=== PATIENT | female | born 1965 | race Asian ===

== ENCOUNTER 2016-09-17 13:26 | Inpatient (IN) | payer BC ==
[~2016-09-17] VITALS: Ht 157.5 cm; Wt 59.0 kg
[2016-09-17 14:39] LABS: microscopic required? NO
[2016-09-17 14:52] LABS: UA SPECIFIC GRAVITY <=1.005 (1.005-1.035); urine erythrocyte NEGATIVE (NEGATIVE)
[2016-09-17 20:00] VITALS: BP 106/63
[2016-09-17 20:05] VITALS: Ht 157.5 cm; Wt 59.0 kg
[2016-09-17 22:30] VITALS: BP 108/63
[2016-09-18 05:51] VITALS: BP 105/67
[2016-09-18 05:51] LABS: PLATELET COUNT 147 x10^3mcL (130-400); RED CELL DISTRIBUTION WIDTH 13.7 % (11.5-14.5)
[2016-09-18 06:14] LABS: CALCIUM 8.2 mg/dL (8.5-10.1); CARBON DIOXIDE 27.4 mmol/L (21-32); CHLORIDE SERUM 106 mmol/L (98-107); CREATININE SERUM 0.6 mg/dL (0.6-1.0); GFR1 > 60 mL/min; GLUCOSE SERUM 113 mg/dL (74-106); MAGNESIUM 1.7 mg/dL (1.8-2.4); PHOSPHOROUS 3.6 mg/dL (2.5-4.9); POTASSIUM SERUM 3.9 mmol/L (3.5-5.1); SODIUM SERUM 140 mmol/L (136-145)
[2016-09-18 06:38] LABS: BASOPHIL % 0 % (0-2)
[2016-09-18 09:32] VITALS: BP 113/64
[2016-09-18 11:06] LABS: T3 TOTAL 0.76 ng/mL
[2016-09-18 11:11] LABS: FREE T4 1.04 ng/dL (0.76-1.46); FREE THYROXINE INDEX 2.3 ug/dL (1.4-4.5); T4(THYROXINE) 6.9 ug/dL (4.7-13.3)
[2016-09-18 11:29] LABS: CHOLESTEROL/HDL RATIO 2.1
[2016-09-18 13:34] VITALS: BP 103/63
[2016-09-18 16:54] VITALS: BP 110/68
[2016-09-18 22:07] VITALS: BP 91/52
[2016-09-19 03:02] VITALS: BP 96/64
[2016-09-19 06:23] VITALS: BP 102/64
[2016-09-19 06:23] LABS: BASOPHIL % 0.3 % (0-2); RED CELL DISTRIBUTION WIDTH 13.8 % (11.5-14.5)
[2016-09-19 06:40] LABS: CALCIUM 7.9 mg/dL (8.5-10.1); CARBON DIOXIDE 25.6 mmol/L (21-32); CHLORIDE SERUM 107 mmol/L (98-107); CREATININE SERUM 0.6 mg/dL (0.6-1.0); GFR1 > 60 mL/min; GLUCOSE SERUM 106 mg/dL (74-106); MAGNESIUM 1.9 mg/dL (1.8-2.4); POTASSIUM SERUM 3.4 mmol/L (3.5-5.1); SODIUM SERUM 140 mmol/L (136-145)
[2016-09-19 06:46] LABS: PLATELET COUNT 128 x10^3mcL (130-400)
[2016-09-19 17:15] VITALS: BP 94/61
[2016-09-19 21:09] VITALS: BP 89/54
[2016-09-20 06:09] VITALS: BP 95/60
[2016-09-20 06:22] LABS: CALCIUM 8.2 mg/dL (8.5-10.1); CARBON DIOXIDE 26.4 mmol/L (21-32); CHLORIDE SERUM 107 mmol/L (98-107); CREATININE SERUM 0.6 mg/dL (0.6-1.0); GFR1 > 60 mL/min; GLUCOSE SERUM 121 mg/dL (74-106); POTASSIUM SERUM 3.4 mmol/L (3.5-5.1); SODIUM SERUM 139 mmol/L (136-145)
[2016-09-20 06:24] LABS: ALBUMIN 2.8 g/dL (3.4-5.0)
[2016-09-20 06:52] LABS: BASOPHIL % 0.4 % (0-2); PLATELET COUNT 131 x10^3mcL (130-400); RED CELL DISTRIBUTION WIDTH 13.7 % (11.5-14.5)
[2016-09-20] MEDS ORDERED: COL250 PO (09:09)
[2016-09-20 10:47] VITALS: BP 98/59
[2016-09-20 17:56] VITALS: BP 100/59
[2016-09-20 22:00] VITALS: BP 107/64
[2016-09-21 06:13] LABS: BASOPHIL % 0.4 % (0-2); PLATELET COUNT 149 x10^3mcL (130-400); RED CELL DISTRIBUTION WIDTH 13.6 % (11.5-14.5)
[2016-09-21 06:29] VITALS: BP 90/52
[2016-09-21 07:05] LABS: CALCIUM 8.5 mg/dL (8.5-10.1); CHLORIDE SERUM 106 mmol/L (98-107); CREATININE SERUM 0.6 mg/dL (0.6-1.0); GFR1 > 60 mL/min; GLUCOSE SERUM 96 mg/dL (74-106); MAGNESIUM 1.9 mg/dL (1.8-2.4); PHOSPHOROUS 3.1 mg/dL (2.5-4.9); POTASSIUM SERUM 3.7 mmol/L (3.5-5.1); SODIUM SERUM 141 mmol/L (136-145)
[2016-09-21 09:35] VITALS: BP 105/62
[2016-09-21 13:01] VITALS: BP 105/62
[2016-09-21] MEDS ORDERED: ULT50 PO (13:04)
[2016-09-21 16:53] VITALS: BP 109/67
[2016-09-21 21:43] VITALS: BP 92/57
[2016-09-22 06:18] VITALS: BP 95/58
[2016-09-22 10:05] VITALS: BP 95/64
[2016-09-22] MEDS ORDERED: ULT50 PO (10:09)
[2016-09-22] MEDS ORDERED: COL250 PO (10:09)
[2016-09-22 10:20] VITALS: BP 105/62
== END 2016-09-22 11:15 | disposition home or self-care (01) | DRG 492 ==
LOC: ED 13:26 → DU 15:01 → MU 15:02 → DU 19:40 → MU 09-18 16:14
PROVIDERS: Emergency Medicine; Family Medicine; Neuromusculoskeletal Medicine, Sports Medicine; ADMIT Family Medicine
PROC: 0MQR0ZZ Repair Left Ankle Bursa and Ligament, Open Approach (ICD-10-PCS; 2016-09-17)
PROC: 0QUK07Z Supplement Left Fibula with Autologous Tissue Substitute, Open Approach (ICD-10-PCS; 2016-09-17)
PROC: 0QSH04Z Reposition Left Tibia with Internal Fixation Device, Open Approach (ICD-10-PCS; principal; 2016-09-17 15:00)
DX: S82.55XB Nondisplaced fracture of medial malleolus of left tibia, initial encounter for open fracture type I or II (principal); N17.0 Acute kidney failure with tubular necrosis; E43 Unspecified severe protein-calorie malnutrition; E87.6 Hypokalemia; E83.42 Hypomagnesemia; D64.9 Anemia, unspecified; D69.6 Thrombocytopenia, unspecified; Y93.89 Activity, other specified; Y92.89 Other specified places as the place of occurrence of the external cause; Y99.8 Other external cause status; W19.XXXA Unspecified fall, initial encounter
CPT/HCPCS: 76001; 83880; 84439; 94150; 97116-GP; 97530-GP; C1713; C9359; J0690; J1170; J1644; J2175; J2250; J2270; J2405; J3010; J3490; J7030; J7040